=== PATIENT | male | born 1955 | race Caucasian/White ===

== ENCOUNTER → 2016-05-04 | Outpatient (CLI) | payer BC ==
[~2016-05-04] MED LIST: NAPR1TAB9 PO; SENNTAB23 PO; SIMV20TA2 PO
== END | disposition home or self-care (01) ==
LOC: C.LABSPEC 12:39
PROVIDERS: ATTEND Internal Medicine
DX: Z12.11 Encounter for screening for malignant neoplasm of colon (principal)

== ENCOUNTER → 2016-06-11 | Outpatient (CLI) | payer BC ==
[~2016-06-11] MED LIST changes: +ACET-24 PO; +ASPEC325 PO; +DICL-201 PO; +MULT-506 PO; +RXC5 PO
[2016-06-11 13:26] LABS: BASO % 0.3 %; BASO ABS # 0.02 K/uL (0-0.2); COMPLETE YES; EOS % 1.9 %; IG% 0.3 %; LYMPH % 46.5 %; LYMPH ABS # 3.63 K/uL (1.2-3.4); MEAN CELL VOLUME 91.3 fL (80-100); MEAN CORPUSCULAR HEMOGLOBIN 31.9 pg (25-34); MEAN PLATELET VOLUME 9.8 fL (7.4-10.4); MONO % 11.8 %; NEUT % 39.2 %; PLATELET COUNT 253 K/uL (130-400); RED BLOOD COUNT 5.04 M/uL (4.7-6.1); WHITE BLOOD COUNT 7.81 K/uL (4.8-10.8)
[2016-06-11 13:36] LABS: ALT/SGPT 25 U/L (12-78); BLOOD UREA NITROGEN 15 mg/dl (7-18); BUN/CREATININE RATIO 15.1 (10-20); CALCIUM 9.1 mg/dl (8.5-10.1); CARBON DIOXIDE 26 mmol/L (21-32); CHLORIDE 106 mmol/L (98-107); CHOLESTEROL 159 mg/dl (0-200); CREATININE 0.97 mg/dl (0.60-1.40); GLUCOSE 97 mg/dl (70-99); SODIUM 140 mmol/L (136-145)
[2016-06-11 13:39] LABS: ALB/GLOB RATIO 1.1 (0.9-2); ALKALINE PHOSPHATASE 92 U/L (45-117); AST/SGOT 28 U/L (15-37); CHOLESTEROL/HDL RATIO 3.1; ESTIMATED AVERAGE GLUCOSE 117 mg/dl; HA1C FLAG Normal (Normal); HDL CHOLESTEROL 52 mg/dl; TRIGLYCERIDES 159 mg/dl (0-150); VERY LOW DENSITY LIPOPROT CALC 32 mg/dl
== END | disposition home or self-care (01) ==
LOC: C.LABSPEC 12:41
PROVIDERS: ATTEND Internal Medicine
DX: M19.90 Unspecified osteoarthritis, unspecified site (principal); E78.5 Hyperlipidemia, unspecified; R73.9 Hyperglycemia, unspecified

== ENCOUNTER → 2016-12-17 | Outpatient (CLI) | payer BC ==
[~2016-12-17] MED LIST changes: -ACET-24 PO; -ASPEC325 PO; -DICL-201 PO; -MULT-506 PO; -RXC5 PO
[2016-12-17 12:46] LABS: BASO % 0.3 %; BASO ABS # 0.02 K/uL (0-0.2); COMPLETE YES; EOS % 3.1 %; HEMATOCRIT 43.8 % (42-52); IG% 0.2 %; LYMPH % 41.8 %; LYMPH ABS # 2.68 K/uL (1.2-3.4); MEAN CELL VOLUME 93.8 fL (80-100); MEAN CORPUSCULAR HEMOGLOBIN 31.7 pg (25-34); MEAN CORPUSCULAR HGB CONC 33.8 g/dl (32-36); MEAN PLATELET VOLUME 10.1 fL (7.4-10.4); MONO % 10.8 %; NEUT % 43.8 %; PLATELET COUNT 225 K/uL (130-400); RED BLOOD COUNT 4.67 M/uL (4.7-6.1); WHITE BLOOD COUNT 6.41 K/uL (4.8-10.8)
[2016-12-17 13:09] LABS: ALT/SGPT 28 U/L (12-78); AST/SGOT 34 U/L (15-37); BLOOD UREA NITROGEN 11 mg/dl (7-18); BUN/CREATININE RATIO 11.2 (10-20); CALCIUM 9.1 mg/dl (8.5-10.1); CARBON DIOXIDE 28 mmol/L (21-32); CHLORIDE 106 mmol/L (98-107); CHOLESTEROL 171 mg/dl (0-200); CREATININE 0.98 mg/dl (0.60-1.40); GLUCOSE 89 mg/dl (70-99); SODIUM 141 mmol/L (136-145); TRIGLYCERIDES 176 mg/dl (0-150); VERY LOW DENSITY LIPOPROT CALC 35 mg/dl
[2016-12-17 13:12] LABS: ALKALINE PHOSPHATASE 83 U/L (45-117); CHOLESTEROL/HDL RATIO 3.8; HDL CHOLESTEROL 45 mg/dl
== END | disposition home or self-care (01) ==
LOC: C.LABSPEC 12:16
PROVIDERS: ATTEND Internal Medicine
DX: M19.90 Unspecified osteoarthritis, unspecified site (principal); E78.5 Hyperlipidemia, unspecified

== ENCOUNTER 2017-02-01 06:24 | Inpatient (IN) | payer BC ==
[2016-12-31 08:52] VITALS: BMI 34.0
--- NOTE | 2016-12-31 09:17 | PAT Medication Instructions ---
Service Date Dec 31, 2016. Current Home Medication List Diclofenac (Voltaren), 75 MG PO BID Multivitamin (Multivitamin), 1 TAB PO QPM Naproxen (Aleve), 440 MG PO PRN Sennosides-Docusate Sodium (Stool Softener), 1 TAB PO QAM Simvastatin (Zocor), 20 MG PO QPM Medication Instructions For Your Scheduled Surgery - Contact your surgeon for instructions for: Naproxen (Aleve), 440 MG PO PRN - Hold the following medications 10 days prior to surgery per your surgeon's instructions: Diclofenac (Voltaren), 75 MG PO BID - Hold the following medications the morning of surgery: Sennosides-Docusate Sodium (Stool Softener), 1 TAB PO QAM - Take the following medications as scheduled the night before surgery: Simvastatin (Zocor), 20 MG PO QPM Multivitamin (Multivitamin), 1 TAB PO QPM OTHERWISE NOTHING TO EAT OR DRINK AFTER MIDNIGHT If you have any questions please call us at [phone] or [phone] or [phone]
--- NOTE | 2016-12-31 10:19 | DIAGNOSTIC IMAGING REPORT ---
TWO VIEW CHEST CLINICAL HISTORY: Preoperative examination. FINDINGS: PA and lateral chest radiographs are obtained. No prior studies are available for comparison at the time of dictation. The cardiomediastinal silhouette is unremarkable. The lungs and pleural spaces are clear. There is no pneumothorax. The bony thorax appears intact. IMPRESSION: No active disease in the chest. Electronically signed by: Stanton Conte M.D. 12/31/2016 10:18 AM Dictated Date/Time: 12/31/2016 10:18 AM
[2016-12-31 10:45] LABS: PROTHROMBIN TIME (PATIENT) 10.5 SECONDS (9.0-12.0)
--- NOTE | 2017-01-29 09:03 | HISTORY & PHYSICAL EXAMINATION ---
DATE OF ADMISSION: 02/01/2017 CHIEF COMPLAINT: Left medial knee pain. HISTORY OF PRESENT ILLNESS: The patient is a 61-year-old gentleman who was referred by my partner Dr. Little for surgical treatment of his left knee. He has got a 2-year history of left knee pain and discomfort, unresponsive to conservative care. Starting about 2 years ago. He was treated conservatively without much relief. MRI showed a medial meniscus tear. He underwent a knee arthroscopy, partial meniscectomy done by Dr. Little a year and a half ago. Really did not help much. At that time he had grade 3-4 changes in the medial femoral condyle. The ACL was intact. He has been through extensive conservative care since then without adequate relief. Pain is localized to the medial side of his knee and he would like to have this fixed. 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 PAST MEDICAL HISTORY: 1. Elevated cholesterol. 2. Numbness in his left arm due to cervical spondylosis. 3. Cervical spondylosis. PAST SURGICAL HISTORY: 1. Bilateral carpal tunnel releases. 2. Left knee arthroscopy done on 07/23/2015. ALLERGIES: None. CURRENT MEDICINES: 1. Simvastatin 20 mg at bedtime. 2. Diclofenac twice a day. SOCIAL HISTORY: 61-year-old male. He is quite active. 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 He does not smoke. REVIEW OF SYSTEMS: Negative for heart disease, diabetes, or blood clots. REVIEW OF SYSTEMS: Negative for diabetes, neurologic problems, vascular problems, bleeding disorders. Denies any chest pain, no shortness of breath. No history of DVT or PE. PHYSICAL EXAMINATION: GENERAL: Physical examination reveals a healthy, pleasant, middle-aged male. He looks to be in good health. HEENT: Benign. NECK: Supple. No lymphadenopathy. LUNGS: Clear to auscultation. HEART: Has a regular rate and rhythm. ABDOMEN: Soft, nontender, nondistended. EXTREMITIES: Grossly neurovascularly intact except as follows: Examination of the left knee reveals patient ambulates independently. He has just a slight bit of a limp. He is tender over the medial joint line. Small knee effusion. Range of motion is 5-125. No instability. No pivot test. Joel's causes pain but no mechanical symptoms. X-RAYS: X-rays of the left knee were reviewed. It shows advanced medial compartment DJD. He has got complete loss of his medial joint space. Osteophytes off the medial femoral condyle and medial tibial plateau. On the stress film his lateral side is well maintained. ASSESSMENT: 61-year-old male a year and a half out from knee arthroscopy with persistent medial knee pain and progressive knee arthritis. He failed conservative treatment and would like to proceed with definitive management. PLAN: We talked about treatment. We are going and plan on taking him to the operating room and do a left partial knee replacement. If we get in there and the disease is too bad we will do a full knee replacement. The risks and benefits of this procedure were explained to the patient including but not limited to DVT, PE, , infection, neurological injury, vascular injury, bleeding problems, pain, limited range of motion, stiffness, failure to relieve symptoms, incomplete relief of symptoms, need for further surgery in the future, fracture, leg length inequality, nerve palsy, dislocation, etc. The patient understands and desires to proceed. Informed consent was obtained. The patient is planning to be discharged to home and use the [facility] home health program. He has stopped his diclofenac.
[~2017-02-01] VITALS: Ht 172.7 cm; Wt 102.2 kg
[2017-02-01] VITALS (7 sets, daily range): BP systolic 115–130; BP diastolic 69–81; PULSE 49–71; TEMP 36.5–37.4; O2SAT 94–99; Ht 172.7 cm; Wt 102.2 kg
[~2017-02-01 06:24] MED LIST changes: +ACETAMINOPHEN 500 MG TAB PO SCH; +BUPIVACAINE LIPOSOME 266 MG, BUPIVACAINE/EPINEPHRINE INJ 50 ML, SODIUM CHLORIDE 0.9% PF... INFIL SCH; +CEFAZOLIN 2000MG IV PUSH 10 ML IV SCH; +DICL-201 PO; +FAMOTIDINE 20 MG TAB PO SCH; +GABAPENTIN 300 MG CAP PO SCH; +LACTATED RINGER'S 1000ML 500 ML IV SCH; +LACTATED RINGER'S 1000ML IV SCH; +METOCLOPRAMIDE HCL 10 MG TAB PO SCH; +MULT-506 PO; +SCOPOLAMINE 1.5 MG TDSY TD SCH; +TRANEXAMIC ACID INJ 1,000 MG in SYRINGE 0 ML IV SCH
[2017-02-01] MEDS ORDERED: BUPIVACAINE 0.5 % 5 MG/1 ML PF 10ML VIAL ONE (06:37)
[2017-02-01] MEDS ORDERED: BUPIVACAINE 0.25% 30 ML VIAL ONE (06:37)
--- NOTE | 2017-02-01 06:51 | History & Physical Bridge Note ---
H&P Re-Evaluation Bridge Note: I have examined the patient, reviewed the History & Physical and in the interval since the performance of the History & Physical I have noted the following changes of clinical significance: No changes noted
[2017-02-01] MEDS: LACTATED RINGER'S 1000ML 1,000 ML IV SCH ×2 (07:27→08:45)
[2017-02-01] MEDS ORDERED: EpHEDrine SULFATE INJ 50 MG/ML AMP IV PRN (07:30)
[2017-02-01] MEDS ORDERED: ATROPINE SULFATE 0.1 MG/ML 5ML SYR IV PRN (07:30)
[2017-02-01] MEDS ORDERED: FENTANYL CITRATE INJ 50 MCG/1 ML 2 ML VIAL IV PRN (07:30)
[2017-02-01] MEDS ORDERED: ONDANSETRON INJ 2 MG/ML 2 ML VIAL IV PRN ×2 (07:30→11:15)
[2017-02-01] MEDS ORDERED: FENTANYL CITRATE INJ 50 MCG/1 ML 2 ML VIAL ONE (07:35)
[2017-02-01] MEDS ORDERED: LIDOCAINE HCL 2% 2 ML VIAL (20MG/ML) ONE (07:35)
[2017-02-01] MEDS ORDERED: PROPOFOL IV EMULSION 10 MG/ML 20 ML VIAL IV ONE ×2 (07:35→10:38)
[2017-02-01] MEDS ORDERED: MIDAZOLAM HCL 1 MG/ML 2ML VIAL ONE (07:35)
[2017-02-01] MEDS ORDERED: ONDANSETRON INJ 2 MG/ML 2 ML VIAL ONE (07:35)
[2017-02-01] MEDS ORDERED: BUPIVACAINE/EPINEPHRINE 0.25% 1:200,000 30 ML VIAL ONE (08:56)
[2017-02-01] MEDS ORDERED: BUPIVACAINE LIPOSOME 1/3% 266 MG/20 ML VIAL INFIL ONE (08:56)
[2017-02-01] MEDS ORDERED: SODIUM CHLORIDE 0.9% PF 50 ML VIAL ONE (08:56)
[2017-02-01] MEDS ORDERED: BACITRACIN 50000 UNIT VIAL ONE (08:56)
[2017-02-01] MEDS ORDERED: KETOROLAC TROMETHAMINE 30 MG/ML VIAL ONE (11:09)
--- NOTE | 2017-02-01 11:13 | [facility] Post Operative Brief Note ---
Immediate Operative Summary Operative Date Feb 01, 2017. Pre-Operative Diagnosis Left Knee Advanced Medial Compartment Degenerative Joint Disease Post-Operative Diagnosis Left Knee Advanced Medial Compartment Degenerative Joint Disease Procedure(s) Performed Left Uni-Compartmental Knee Arthroplasty Surgeon Dr. Yang Account Auditor Surgeon(s) KISHAN Payan Estimated Blood Loss 20 cc Findings Left Knee DJD Fluids (cc crystalloids) 1200 cc Specimens A. Left Knee Bone and Tissue Drains None Anesthesia Spinal Complication(s) None Disposition Recovery Room / PACU
[2017-02-01] MEDS ORDERED: METOCLOPRAMIDE HCL INJ 5 MG/ML 2 ML VIAL IV PRN (11:15)
[2017-02-01] MEDS ORDERED: SILVER SULFADIAZINE 1% CR 50 GM JAR EXT PRN (11:15)
[2017-02-01] MEDS ORDERED: TAMSULOSIN HCL 0.4 MG CAP PO PRN (11:15)
[2017-02-01] MEDS ORDERED: DiphenhydrAMINE HCL 50 MG/ML VIAL IV PRN (11:15)
[2017-02-01] MEDS ORDERED: OXYCODONE HCL IR 5 MG TAB (IMMEDIATE RELEASE) PO PRN (11:15)
[2017-02-01] MEDS ORDERED: MoRPHine SULFATE 2 MG/ML CARP IV PRN (11:15)
[2017-02-01] MEDS ORDERED: ZOLPIDEM TARTRATE 5 MG TAB PO PRN (11:15)
[2017-02-01] MEDS ORDERED: ALUMINUM/MAGNESIUM/SIMETH (MAALOX MAX) 30 ML UDC PO PRN (11:15)
[2017-02-01] MEDS ORDERED: BISACODYL 10 MG SUPP PR PRN (11:15)
[2017-02-01] MEDS ORDERED: MAGNESIUM HYDROXIDE SUSP 30 ML UDC PO PRN (11:15)
--- NOTE | 2017-02-01 11:50 | Anesthesiology Progress Note ---
Anesthesia Post Op Note Date & Time Feb 01, 2017 at 11:50 Vital Signs Pain Intensity: 0 Vital Signs Past 12 Hours Date Time Temp Pulse Resp B/P (MAP) Pulse Ox O2 Delivery O2 Flow Rate FiO2 02/01/17 11:47 36.8 02/01/17 11:46 126/87 02/01/17 11:43 55 16 97 02/01/17 11:43 52 16 02/01/17 11:41 126/78 02/01/17 11:38 54 19 02/01/17 11:38 52 19 97 02/01/17 11:37 61 15 123/66 96 02/01/17 11:37 56 15 02/01/17 11:32 53 16 96 02/01/17 11:32 53 16 02/01/17 11:31 120/77 02/01/17 11:28 55 15 02/01/17 11:28 54 15 97 02/01/17 11:26 118/72 02/01/17 11:23 55 19 97 02/01/17 11:23 54 19 02/01/17 11:21 118/71 02/01/17 11:19 117/75 02/01/17 11:18 36.4 68 16 117/75 99 Nasal Cannula 2 02/01/17 06:57 36.7 60 18 130/81 96 Room Air Notes Mental Status: alert / awake / arousable, participated in evaluation Pt Amnestic to Procedure: Yes Nausea / Vomiting: adequately controlled Pain: adequately controlled Airway Patency, RR, SpO2: stable & adequate BP & HR: stable & adequate Hydration State: stable & adequate Neuraxial Anesthesia: was administered, sensory block is resolving Anesthetic Complications: no major complications apparent
--- NOTE | 2017-02-01 11:55 | OPERATIVE REPORT ---
DATE OF OPERATION: 02/01/2017 SURGEON: Vini Yang MD RETAIL EVENT ASSISTANT: KISHAN Berry PREOPERATIVE DIAGNOSIS: Left knee medial compartment degenerative joint disease. POSTOPERATIVE DIAGNOSIS: Same. PROCEDURE PERFORMED: Left Biomet [place] mobile-bearing partial knee replacement. COMPLICATIONS: None. ESTIMATED BLOOD LOSS: 20 mL. FLUID REPLACEMENT: 1200 mL crystalloid fluid replacement. ANESTHESIA: Spinal with adductor canal block. DRAINS: None. SPECIMENS: Left knee sent for pathology. OPERATIVE INDICATIONS: The patient is a 61-year-old very active gentleman who has had a 2-year history of increasing left knee pain and discomfort, unresponsive to conservative care. He had a knee scope about 18 months ago, which did not really help much at all and the disease has just progressed. On x-ray, he developed progressive knee arthritis. Symptoms all localized in the medial side of his knee. He elected to proceed with a partial knee replacement. OPERATIVE FINDINGS: Operative findings revealed advanced medial compartment DJD. He had grade 4 [id number] disease of the medial femoral condyle and medial tibial plateau. This was most severe in the medial femoral condyle. He did have some eburnation and hardening of the bone as well. He had some osteophytes medially. The lateral compartment was pretty well preserved as was the patellofemoral compartment. He had a fixed varus deformity to his knee. The ACL was intact. OPERATIVE IMPLANTS: Operative implants consisted of: 1. Biomet size large [place] femoral component. 2. Biomet size C left medial tibial tray. 3. A 4-mm mobile-bearing insert, left side. OPERATIVE PROCEDURE: The patient was taken to the operating room, identified and placed on the operating table in the supine position. All contact areas were appropriately padded. IV antibiotics were provided by the anesthesia team. A spinal anesthetic and adductor canal block had been provided in the holding area. Dalal catheter was placed in sterile fashion. Left thigh tourniquet was then placed. The left lower extremity was then prepped and draped in the usual sterile fashion. The left leg was elevated and exsanguinated with Esmarch and tourniquet was placed at 300 mmHg. An anterior approach to the knee was then performed through a longitudinal incision from the superior pole of the patella to just medial to the tibial tubercle. Sharp dissection was carried out through the subcutaneous tissues down to the level of the extensor mechanism. The subcutaneous tissues were mobilized. A medial parapatellar arthrotomy incision was made. Some subperiosteal dissection was carried out medially, taking great care to protect the MCL. The fat pad was resected. I then examined the lateral compartment. The knee was pretty well preserved. The ACL looked well preserved as well and the trochlea and the patellar compartments were fairly well preserved. We elected to proceed with a partial knee replacement. The femur was then sized to a size large. The large femoral spoon was placed. I did remove some osteophytes from the intercondylar notch area. The external tibial alignment jig was placed in the anterior face of the tibia and adjusted to the large spoon. The 4G clamp was used and the tibial cutting guide was pinned in place. Tibial cut was performed to remove about 2-3 mm of bone from the medial side. The tibia was then sized to a size C. It was a little bit in between sizes, but I did not want to leave any overhang due to its very thin structure and concerns with irritation. Attention was then drawn to the femur. The distal femur was entered with the drill followed by the canal finder and the intramedullary irasema was placed. The large femoral template was then placed on the distal medial femur and attached to the IM guide. The holes were drilled for the femoral component. The posterior cutting guide was placed and the posterior cut was made. The knee was flexed. The remnants of the medial meniscus was excised. The 0 spigot was then used and the distal femur was milled. I then trialed the knee and the 4 insert fit appropriately in flexion and the 1 in extension. Therefore, the 3 spigot was placed and the distal femur was milled again. We trialed the knee and the 4 feeler gauge fit most appropriately. We then prepared the femur. The posterior osteophyte cutting guide was placed. The reamer was then used to create the anterior femoral chamfer cut and the osteotome was used to remove any posterior osteophytes. The cement drill was then used to create holes in the distal femur for cement interdigitation. The tibial tray was then pinned in place and the toothbrush saw blade was used to create the defect for the tibial keel. We then cleaned this out. I then irrigated the wound. I then placed trial components and the 4 feeler gauge fit appropriately in both flexion and extension. It was a little bit tight in flexion, but the 3 just seemed too loose in extension. Therefore, we elected to use these implants. All trial implants were removed. I did inject locally with a total of 100 mL of a combination of 20 mL of Exparel, 30 mL of normal saline, and 50 mL of 0.25% Marcaine with epinephrine. A single batch of Palacos G cement was mixed. A left medial size C tibial tray and a size large femoral implant were then cemented in place. The 4 feeler gauge was placed and the knee was brought out into about 30 degrees short of full extension until cement hardened. A final cement check was then performed. I irrigated the wound. We trialed the knee and the 4 insert fit most appropriately. It was a little bit snug, but the 3 really felt too loose. We then opened up the 4 insert and placed it. We did have to work to get this in, but it appeared to track appropriately and the knee had full range of motion and good stability. The tourniquet was then let down for a tourniquet time of 77 minutes. Hemostasis was assured with use of electrocautery. The wound was once again irrigated. The extensor mechanism was then closed with #1 Vicryl suture in a [id number] fashion. Extensor mechanism was checked and found to be intact. Subcutaneous tissues were then closed with 2-0 Dexon suture in a buried interrupted fashion. The skin was closed with skin gayla. Leg was then cleaned and dried and a sterile dressing of Xeroform, 4 x 4, sterile cast padding and an Woody bandage were applied. The patient was then transferred to the recovery room in stable condition. The patient tolerated the procedure well with no complications. All needle and sponge counts were correct at the end of the operation. I attest to the content of the Intraoperative Record and any orders documented therein. Any exceptions are noted below. THERESAD
--- NOTE | 2017-02-01 12:23 | DIAGNOSTIC IMAGING REPORT ---
L KNEE 1 OR 2 VIEWS ROUTINE HISTORY: 61 years-old Male AP/LATERAL IN PACU LEFT KNEE status post left knee joint arthroplasty. Degenerative joint disease. COMPARISON: Left knee radiographs 12/28/2016. TECHNIQUE: 2 views of the left knee FINDINGS: Postoperative changes compatible with medial compartment left knee hemiarthroplasty are noted. Alignment is satisfactory. No periprosthetic fracture or retained foreign body identified. Mild to moderate patellofemoral degenerative changes are also noted. Midline skin gayla are seen anteriorly. Expected postsurgical soft tissue swelling and deep tissue air is noted with a surgical drain in place. IMPRESSION: Status post medial compartment left knee hemiarthroplasty without complication identified. The above report was generated using voice recognition software. It may contain grammatical, syntax or spelling errors. Electronically signed by: Wander Lebron M.D. 02/01/2017 12:22 PM Dictated Date/Time: 02/01/2017 12:20 PM
[2017-02-01] MEDS: D5W AND 1/2NSS + 20MEQ KCL 1,000 ML IV SCH ×2 (13:10→19:48)
[2017-02-01] MEDS: ACETAMINOPHEN 500 MG TAB PO SCH ×2 (13:49→21:55)
[2017-02-01] MEDS: CHECK SCOPOLAMINE PATCH PLACEMENT SCH ×2 (16:22→23:35)
[2017-02-01] MEDS: CEFAZOLIN IV 2,000 MG in SYRINGE 0 ML IV SCH ×2 (16:22→23:31)
--- NOTE | 2017-02-01 17:54 | PROGRESS NOTE ---
DATE: 02/01/2017 SUBJECTIVE: A 61-year-old gentleman postop from a left partial knee replacement. He is doing well. Not having any pain yet. No chest pain or shortness of breath. Not feeling dizzy or lightheaded. OBJECTIVE: VITAL SIGNS: Temperature is 36.6. Vital signs stable. GENERAL: Reveals a pleasant, middle-aged male. He is sitting up in bed, looks comfortable. LUNGS: Clear to auscultation. HEART: Regular rate and rhythm. ABDOMEN: Soft, nontender, nondistended. EXTREMITIES: Grossly neurovascularly intact except as follows. Examination of the left leg reveals the leg to be well aligned. Dressing is clean, dry, and intact. He can dorsiflex and plantarflex his foot appropriately. He is neurologically intact. X-RAYS: X-rays of the left knee were reviewed. It shows a partial knee replacement. Components look in good position. No signs of problems. ASSESSMENT: A 61-year-old gentleman postop from a left partial knee replacement, doing well. Pain is controlled. He is neurologically intact. PLAN: 1. DVT prophylaxis including thigh high TEDs, SCDs, and aspirin twice a day. 2. PT, OT. Weightbearing as tolerated. Left total knee protocol. 3. Pain control. Doing well with current pain regimen. 4. Disposition, plan to be discharged to home with some home health once adequately recovered.
[2017-02-01] MEDS: KETOROLAC TROMETHAMINE 30 MG/ML VIAL IV. SCH ×2 (18:23→23:36)
[2017-02-01] MEDS ORDERED: ACET-24 PO (19:39)
[2017-02-01] MEDS ORDERED: ASPEC325 PO (19:39)
[2017-02-01] MEDS ORDERED: RXC5 PO (19:39)
--- NOTE | 2017-02-01 19:42 | Discharge Instructions ---
Discharge Instructions Date of Service Feb 01, 2017. Admission Reason for Admission: Left Knee Degenerative Joint Disease Discharge Discharge Diagnosis / Problem: Left Partial Knee Replacement Discharge Goals Goal(s): Decrease discomfort, Improve function, Increase independence, Improve disease control, Therapeutic intervention Activity Recommendations Activity Limitations: per Instructions/Follow-up section Weightbearing Status: Left weightbearing . Instructions / Follow-Up Instructions / Follow-Up ACTIVITY RECOMMENDATIONS: Physical Therapy: * You will go to physical therapy three times each week for four to six weeks after your surgery in order to regain your knee range of motion and to retrain your knee to work properly. * It is just as important to make sure you are getting your knee perfectly straight as it is to regain your knee bend. * Taking a pain pill an hour before therapy can help you have a more productive and comfortable therapy session. Home Exercise: * You were shown a series of exercises (heel props, heel slides, etc.) in the hospital. Do these exercises three to four times each day including the exercises you were shown in physical therapy. Walking: * Get up and walk several times each day. For the first four weeks, try not to stand or walk for more than one hour at a time. If you do stand or walk for more than one hour, you will not hurt anything, but your knee and leg will likely swell. * As you feel comfortable, you may change from the walker or crutches to a cane and then to independent walking. MEDICATIONS: New Medicine: * You will likely be taking one or more of these medications: 1. Oxycodone- A quick and shorter-acting pain medication. Take one to two tablets every four to six hours to lessen your pain. 2. Aspirin - Thins your blood to lessen the chance of forming a blood clot. * The most common side effects of pain medicine and iron are nausea and constipation. If nausea or constipation is too much of a problem or if you have any questions about your new medicines or doses, call [facility] at . We will try to help you manage these issues. VERY IMPORTANT TO READ AND REVIEW" Pain: * The immediate post-operative period after knee replacement surgery is often quite painful. * You are given a prescription for pain medicine. You should take it, as directed, when you need it, especially before physical therapy and before going to bed. Pain that interferes with sleep is very common and can last several months. * You will likely need pain medicine for the first four to six weeks. It will not stop all of the pain. The pain will lessen and as you feel better, you may change to milder pain medicine such as Tylenol. * The most common side effects of pain medicine are nausea and constipation, so don't take more than you need. SPECIAL CARE INSTRUCTIONS: TEDs/Elastic Stockings: * The white elastic stockings help limit swelling and prevent blood clots from forming in your legs. The more you wear them, the more they work. * Wear them for six weeks after knee replacement surgery and four weeks after partial knee replacement. Prevention of Infection: * Take antibiotics one hour before any dental cleaning, dental work, urological procedure, gastrointestinal procedure or any invasive surgery in order to prevent your new joint from getting infected. * You may get the antibiotics from the doctor performing the procedure or you may call our office at before and we will call in a prescription to the pharmacy of your choice. Things to Watch For: * Drainage from the incision site that occurs more than one week after your surgery. * Severely increased knee/leg pain or swelling. * Increased redness at the incision site. * Fever above 102 degrees Fahrenheit. * Unusual chest pain or shortness of breath. * Unusual pain or burning with urination. Call [facility] at with any of the above problems or if you have any questions about your medicines or recovery. FOLLOW UP VISIT: Make an appointment to see your doctor for approximately two weeks after surgery for a progress check and staple removal by calling the office at . Current Hospital Diet Patient's current hospital diet: Regular Diet Discharge Diet Recommended Diet: Regular Diet Procedures Procedures Performed: Left Uni-Compartmental Knee Arthroplasty Pending Studies Studies pending at discharge: no Laboratory Results Lipid Panel Test 12/17/16 09:45 Range/Units Triglycerides Level 176 H 0-150 mg/dl Cholesterol Level 171 0-200 mg/dl HDL Cholesterol 45 mg/dl LDL Cholesterol Direct 105 mg/dl Cholesterol/HDL Ratio 3.8 LDL Cholesterol, Calculated mg/dl Medical Emergencies . Who to Call and When: Medical Emergencies: If at any time you feel your situation is an emergency, please call 911 immediately. . Non-Emergent Contact Non-Emergency issues call your: Surgeon . "Provider Documentation" section prepared by Vini Yang. . VTE Core Measure Inpt VTE Proph given/why not?: Other Anticoagulation, T.E.D. Stockings, SCD's
[2017-02-01] MEDS ORDERED: SIMVASTATIN 20 MG TAB PO SCH (21:00)
[2017-02-01] MEDS ORDERED: SENNA 8.6 MG TAB PO SCH (21:00)
[2017-02-01] MEDS ORDERED: MULTIVITAMIN TAB PO SCH (21:00)
[2017-02-01] MEDS: TAPENTADOL ER 50 MG TABCR PO SCH (21:55)
[2017-02-01] MEDS: DOCUSATE SODIUM 100 MG CAP PO SCH (21:56)
[2017-02-01] MEDS: ASPIRIN 325 MG ECTAB PO SCH (21:56)
[2017-02-02] MEDS: D5W AND 1/2NSS + 20MEQ KCL 1,000 ML IV SCH ×2 (02:09→08:28)
[2017-02-02 04:00] VITALS: BP 114/65; PULSE 71; TEMP 37.2; O2SAT 93
[2017-02-02] MEDS: ACETAMINOPHEN 500 MG TAB PO SCH (05:30)
[2017-02-02] MEDS: KETOROLAC TROMETHAMINE 30 MG/ML VIAL IV. SCH (05:31)
[2017-02-02 07:20] VITALS: BP 127/70; PULSE 65; TEMP 37.3; O2SAT 94
--- NOTE | 2017-02-02 07:37 | Anesthesiology Progress Note ---
Anesthesia Post Op Note Date & Time Feb 02, 2017 at 07:36 Vital Signs Pain Intensity: 2.0 Vital Signs Past 12 Hours Date Time Temp Pulse Resp B/P (MAP) Pulse Ox O2 Delivery O2 Flow Rate FiO2 02/02/17 07:20 37.3 65 16 127/70 (89) 94 Room Air 02/02/17 04:00 37.2 71 18 114/65 (81) 93 Room Air 02/01/17 23:45 37.4 71 18 115/70 (85) 96 Room Air 02/01/17 23:20 Room Air Notes Mental Status: alert / awake / arousable, participated in evaluation Pt Amnestic to Procedure: Yes Nausea / Vomiting: adequately controlled Pain: adequately controlled Airway Patency, RR, SpO2: stable & adequate BP & HR: stable & adequate Hydration State: stable & adequate Neuraxial Anesthesia: was administered, sensory block resolved Anesthetic Complications: no major complications apparent
[2017-02-02] MEDS: CHECK SCOPOLAMINE PATCH PLACEMENT SCH (07:49)
[2017-02-02] MEDS: DOCUSATE SODIUM 100 MG CAP PO SCH (08:28)
[2017-02-02] MEDS: ASPIRIN 325 MG ECTAB PO SCH (08:28)
[2017-02-02] MEDS: TAPENTADOL ER 50 MG TABCR PO SCH (08:32)
[2017-02-02] MEDS ORDERED: PANTOprazole SOD 40 MG TAB PO SCH (09:00)
[2017-02-02] MEDS ORDERED: MULTIVITAMIN TAB PO SCH (09:00)
[2017-02-02] MEDS ORDERED: DOCUSATE SODIUM/SENNA 50/8.6MG TAB PO SCH (09:00)
--- NOTE | 2017-02-02 09:04 | PROGRESS NOTE ---
DATE: 02/02/2017 DATE: 02/02/2017 SUBJECTIVE: A 61-year-old gentleman postop day 1 from a left partial knee replacement. He is doing pretty well. Pain has been reasonably well controlled. No chest pain or shortness of breath. Feels like he is ready to go home after therapy. OBJECTIVE: VITAL SIGNS: Temperature is 37.3. Vital signs stable. PHYSICAL EXAMINATION: GENERAL: Healthy, pleasant, middle-aged male. He is sitting up at his bedside chair and looks comfortable. EXTREMITIES: Examination of the left leg reveals the dressing to be clean, dry and intact. No drainage. He can dorsiflex and plantarflex his foot appropriately. He can do a straight leg raise with a little bit of a lag. He is neurologically intact. ASSESSMENT: A 61-year-old gentleman postop day 1 from a left partial knee replacement, doing well. Pain is controlled. He is neurologically intact. PLAN: 1. DVT prophylaxis including thigh-high TEDs, SCDs, and aspirin twice a day. 2. PT/OT. Weightbearing as tolerated. Left total knee protocol. 3. Pain control. Doing well with current pain regimen. 4. Disposition. Plan to discharge to home with some home health later today after therapy.
[2017-02-02 09:07] VITALS: BP 127/70; PULSE 65; TEMP 37.3; O2SAT 94
--- NOTE | 2017-02-05 15:59 | DISCHARGE SUMMARY ---
ADMITTING PHYSICIAN AND SURGEON: Dr. Yang. ADMITTING DIAGNOSIS: Left knee medial compartment degenerative joint disease. SURGERY PERFORMED: Left partial knee replacement. SECONDARY DIAGNOSES: Elevated cholesterol, numbness in the left arm, cervical spondylosis. CONSULTS: None obtained. HISTORY AND PHYSICAL EXAMINATION: Well documented in the patient's chart. HOSPITAL COURSE: The patient was admitted on 02/01/2017 underwent partial knee replacement. He tolerated the procedure well. There were no complications. He was transferred to the PACU postoperatively and later to the orthopedic floor for further care. He was given Ancef for antibiotic prophylaxis, CONCHA stockings, SCDs and aspirin for DVT prophylaxis. Vital signs were monitored during his hospital stay and remained stable. There were no complications. He did not require any blood transfusions. By postoperative day 1, he was tolerating a regular diet. He was participating in physical therapy. Pain was controlled with oral pain medicine. He had no signs or symptoms of deep vein thrombosis. On postop day 1, he was discharged home, set up with home health services. He was given printed discharge instructions including new prescriptions for extra strength Tylenol, aspirin 325 mg b.i.d., oxycodone. Continue his home medications. Continue physical therapy. Weightbearing as tolerated. CONCHA stockings. Follow up in 10-12 days or sooner if there are problems or concerns.
== END 2017-02-02 11:35 | disposition home health service (06) | DRG 470 ==
LOC: C.ACU 06:24 → C.3E 06:40 → ENRESERV 11:29
PROVIDERS: ADMIT Orthopaedic Surgery Sports Medicine; ATTEND Orthopaedic Surgery Sports Medicine
PROC: 0SRD0L9 Replacement of Left Knee Joint with Medial Unicondylar Synthetic Substitute, Cemented, Open Approach (ICD-10-PCS; principal; 2017-02-01 09:15)
DX: M17.12 Unilateral primary osteoarthritis, left knee (principal); E78.00 Pure hypercholesterolemia, unspecified; M47.812 Spondylosis without myelopathy or radiculopathy, cervical region; Z79.899 Other long term (current) drug therapy; Z79.1 Long term (current) use of non-steroidal anti-inflammatories (NSAID)

== ENCOUNTER → 2017-06-22 | Outpatient (CLI) | payer BC ==
[~2017-06-22] MED LIST changes: +ACET-24 PO; -ACETAMINOPHEN 500 MG TAB PO SCH; +ASPEC325 PO; -BUPIVACAINE LIPOSOME 266 MG, BUPIVACAINE/EPINEPHRINE INJ 50 ML, SODIUM CHLORIDE 0.9% PF... INFIL SCH; -CEFAZOLIN 2000MG IV PUSH 10 ML IV SCH; -FAMOTIDINE 20 MG TAB PO SCH; -GABAPENTIN 300 MG CAP PO SCH; -LACTATED RINGER'S 1000ML 500 ML IV SCH; -LACTATED RINGER'S 1000ML IV SCH; -METOCLOPRAMIDE HCL 10 MG TAB PO SCH; +RXC5 PO; -SCOPOLAMINE 1.5 MG TDSY TD SCH; -TRANEXAMIC ACID INJ 1,000 MG in SYRINGE 0 ML IV SCH
[2017-06-22 14:18] LABS: CHOLESTEROL 157 mg/dl (0-200); LDL CHOLESTEROL (DIRECT) 94 mg/dl
== END | disposition home or self-care (01) ==
LOC: C.LABSPEC 13:04
PROVIDERS: ATTEND Internal Medicine
DX: M19.90 Unspecified osteoarthritis, unspecified site (principal); E78.5 Hyperlipidemia, unspecified; E66.09 Other obesity due to excess calories